=== PATIENT | male | born 1960 | race Caucasian/White ===

== ENCOUNTER → 2022-08-27 11:31 | Outpatient (BNVA) | payer OTHER, SELFPAY | PROVIDERS: PCP Nurse Practitioner Family; Visit Provider Nurse Practitioner Family | DX: T63.461A Toxic effect of venom of wasps, accidental (unintentional), initial encounter (principal); E78.5 Hyperlipidemia, unspecified; I10 Essential (primary) hypertension | CPT/HCPCS: 80053; 80061 ==

== ENCOUNTER 2023-05-21 07:15 | Day surgery (SDC) | payer OTHER, SELFPAY ==
[2023-05-21 07:28] VITALS: BP 165/91; PULSE 56; RESP 18; TEMP 36.6; O2SAT 94
[2023-05-21] MEDS: sodium chloride 0.9% 1,000 ML 30 ML IV (07:44)
--- NOTE | 2023-05-21 08:09 | ANES.PREANE2 ---
Pre-Anesthetic Assessment Height/Weight: Height 1.96 m Weight 133.81 kg Temp Pulse Resp BP Pulse Ox O2 Del Method 97.9 F 56 L 18 165/91 94 Room Air 05/21/23 07:28 05/21/23 07:28 05/21/23 07:28 05/21/23 07:28 05/21/23 07:28 05/21/23 07:28 Preop Diagnosis: screening, GERD Operation Date: 05/21/23 08:30 Proposed Procedures p 28457 egd 16459 colon G0105 screen colon H risk Z12.11,K21.9(Not Applicable) - Win Alfonso DO s Colonoscopy(Not Applicable) - Win Alfonso DO Familial anesthetic complications: None Was Beta Valdo taken within 24 hours: Yes Was Clonidine taken within 24 hours: N/A Last intake: Intake Last Liquid Date 05/20/23 Last Liquid Time 23:45 Last Solid Date 05/19/23 Last Solid Time 18:30 Social No alcohol and No tobacco Exam alert, oriented x 3 and regular rate & rhythm Airway Mallampati: Class I Dentition: full History/ROS No significant history except as noted Pulmonary Sleep Apnea CV/HEM Hypertension None reported Hepatic None reported GI Gastroesophageal Reflux Disease Metabolic None reported Musc/skel Lower Back Pain Neuropsych None reported Anesthetic Plan ASA status: 3 Anesthesia: Anesthesia Evaluation and MAC Risk of > 500 ml blood loss (7ml/kg in children): No Medications/Allergies Home Medications Medication Instructions Recorded Confirmed Last Taken Type amlodipine 5 mg tablet 5 mg PO DAILY #90 tabs 08/27/22 05/19/23 05/19/23 Rx baclofen 10 mg tablet 10 mg PO TID PRN spasms #270 tabs 08/27/22 05/19/23 05/19/23 Rx doxycycline hyclate 100 mg capsule 100 mg PO DAILY #90 caps 08/27/22 05/19/23 05/19/23 Rx epinephrine 0.3 mg/0.3 mL 0.3 mg (0.3 mL) IM Q4H PRN 08/27/22 05/19/23 Unknown Rx injection, auto-injector (EpiPen anaphylaxis #2 ea 2-Sudhakar) gabapentin 300 mg capsule 300 mg PO TID #270 caps 08/27/22 05/19/23 05/19/23 Rx hydrochlorothiazide 25 mg tablet 25 mg PO DAILY #90 tabs 08/27/22 05/19/23 05/19/23 Rx metoprolol tartrate 50 mg tablet 50 mg PO BID #180 tabs 08/27/22 05/19/23 05/21/23 Rx sildenafil 100 mg tablet (Viagra) 100 mg PO DAILY PRN sexual 01/28/23 05/19/23 05/19/23 Rx activity #30 tabs losartan 100 mg tablet 100 mg PO DAILY 04/22/23 05/19/23 05/19/23 History pantoprazole 40 mg tablet,delayed 40 mg PO BID 6 weeks #84 tabs 04/28/23 05/19/23 05/19/23 Rx release (Protonix) atorvastatin 40 mg tablet 40 mg PO DAILY #90 tabs 05/06/23 05/19/23 05/19/23 Rx meloxicam 15 mg tablet 15 mg PO DAILY PRN Pain 05/19/23 05/19/23 05/19/23 History Allergies Allergy/AdvReac Type Severity Reaction Status Date / Time venom-wasp Allergy Severe ALGY-Difficulty Verified 05/21/23 07:18 Breathing Current Medications Generic Name Dose Route Start Last Admin Trade Name Freq PRN Reason Stop Dose Admin Sodium Chloride 1,000 mls @ 30 mls/hr 05/21/23 07:30 05/21/23 07:44 Sodium Chloride 0.9% IV 05/22/23 07:29 30 mls/hr .Q24H KARY Administration PFSH Anesthesia Surgical History H/O eye surgery Family History Grandfather , prostate Cancer Father Hyperlipidemia Hypertension Grandfather Lung disease Other Congestive heart failure (CHF) Ischemic bowel disease Denies family history of Diabetes CAD (coronary artery disease) Clotting disorder Dementia Psychiatric illness Chronic kidney disease (CKD) Suicide Anesthesia complication Bleeding disorder Stroke Social History Smoking and tobacco/nicotine status: never used tobacco/nicotine Alcohol intake: current Alcohol intake frequency: holidays/special occasions only Substance/Drug Use: never Adopted: No Caregiver/support person: No Lives independently: Yes Household members: spouse Marital status: Number of children: 7 service: No Current occupational status: retired Current occupation: construction Pets and animals: Yes Sexually active: Yes Do you think of yourself as: Straight/Heterosexual Current gender identity: Male Data Anesthesia Cardiac Studies: No Data to Display
--- NOTE | 2023-05-21 08:52 | W.PM.OPSUD ---
Surgery/Procedure H&P Update DATE OF PROCEDURE: May 21, 2023 DATE H&P PERFORMED: 04/28/23 H&P UPDATE INFORMATION: I have reviewed H&P completed within last 30 days, I have examined patient prior to procedure and No changes to prior documentation PREOP DIAGNOSIS: screening, GERD PLANNED PROCEDURE: Operation Date: 05/21/23 08:30 Proposed Procedures p 75329 egd [id number] colon G0105 screen colon H risk Z12.11,K21.9(Not Applicable) - DO mary jane Yoo Colonoscopy(Not Applicable) - Win Alfonso DO
[2023-05-21 09:11] VITALS: BP 144/84; PULSE 62; RESP 18; TEMP 36.6; O2SAT 95
[2023-05-21 09:33] VITALS: BP 113/76; PULSE 52; RESP 18; O2SAT 95
--- NOTE | 2023-05-21 15:24 | ANE.PACU2 ---
Inpatient post-anesthesia follow up: Airway intact: Yes Vital signs: Temperature 98 F Pulse Rate 52 Respiratory Rate 18 Blood Pressure 113/76 Pulse Oximetry 95 Oxygen Delivery Me thod Room Air Oxygen Flow Rate Fraction of Inspir ed Oxygen Hydration adequate: Yes Nausea and vomiting: No Pain level: 2 Mental status: Baseline
== END 2023-05-21 09:45 | disposition home or self-care (01) ==
PROVIDERS: PCP Nurse Practitioner Family; Visit Provider Surgery
PROC: 0DJ08ZZ Inspection of Upper Intestinal Tract, Via Natural or Artificial Opening Endoscopic (ICD-10-PCS; CPT 43235; principal; 2023-05-21 08:30)
PROC: 0DJD8ZZ Inspection of Lower Intestinal Tract, Via Natural or Artificial Opening Endoscopic (ICD-10-PCS; CPT 45378; 2023-05-21 08:30)
DX: Z12.11 Encounter for screening for malignant neoplasm of colon (principal); K21.9 Gastro-esophageal reflux disease without esophagitis; K57.30 Diverticulosis of large intestine without perforation or abscess without bleeding; K29.50 Unspecified chronic gastritis without bleeding; G47.30 Sleep apnea, unspecified
CPT/HCPCS: 43239; 45378; 88305; 88342; J2704; J3490; J7030

== ENCOUNTER → 2024-06-29 14:30 | Outpatient (BNVA) | payer MEDICARE, SELFPAY | PROVIDERS: PCP Nurse Practitioner Family; Visit Provider Internal Medicine | DX: R07.9 Chest pain, unspecified (principal) | CPT/HCPCS: 93005; 99204 ==

== ENCOUNTER 2024-07-20 07:14 | Outpatient (CLI) | payer MEDICARE, SELFPAY ==
[2024-07-20 07:48] VITALS: BMI 34.9
--- NOTE | 2024-07-20 07:52 | NMCV_ITS ---
NM rayna perf SPECT r/s* 10021 Axel Guillen Age: 63 Gender: M : 1960 Exam Date: 07/20/2024 08:18 Ordering Phys: Keaton Valdes M.D ([email or web address]) Technologist: CARLI Almonte Exam Location: [facility] Indications: cp STRESS TEST [facility] IMAGE PROTOCOL Rest/Stress 1 Lexiscan Day Radiopharmaceutical Dose (mCi) Administration Site Administered by Rest: Tc-99m 10.8 IV CARLI Almonte Sestamibi Stress:Tc-99m 32.9 IV CARLI Theodore Sestamibi Rest: 20-Jul-2024 60 Discovery 630 Stress: 20-Jul-2024 30 Discovery 630 0.4mg Lexiscan. 0.4mg Lexiscan. Supine position only as patient was unable to lay prone. SPECT RESULTS Technical Quality: Good Raw Data Analysis: Normal Image Corrections: No attenuation or motion correction applied Summed Stress Score: 1 Summed Rest Score: 0 Summed Difference Score: 1 PERFUSION FINDINGS SPECT images demonstrate homogeneous tracer distribution throughout the myocardium. FUNCTIONAL RESULTS (calculated via Gated SPECT) Stress Image LV EF (%): 65 Stress EDV (mL):190 TID: 0.99 Stress ESV (mL):66 FUNCTIONAL FINDINGS: There is normal left ventricular systolic function. IMPRESSIONS Myocardial perfusion imaging is normal. Mike Mendez MD (Electronically Signed) Final Date: 27 Jul 2024 12:27 S
--- NOTE | 2024-07-20 07:52 | ECG_ITS ---
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 The perfusion scan will be documented separately. DATA: Baseline heart rate was 56 beats per minute. Baseline blood pressure was 161/83 millimeters of mercury. Target heart rate was 155. Maximum heart rate achieved was 69. which was 44% of the predicted target heart rate. Maximum blood pressure was 162/98 millimeters of mercury. The reason for ending the test was completion of the protocol. The patient did not experience any symptoms. ELECTROCARDIOGRAM: BASELINE: Sinus rhythm. Normal axis. Otherwise, no ST-T changes suggestive of ischemia noted. No arrhythmia noted. EXERCISE: After Lexiscan injection, no ST-T changes suggestive of ischemic noted. No arrhythmia noted. CONCLUSION: Please note due to baseline abnormality of the EKG specificity and sensitivity of the EKG portion of LexiScan MIBI stress test will be low 1. EKG not suggestive of ischemia 2. Lexiscan injection unremarkable. 3. Perfusion scan will be documented separately. Electronically Signed On 07-27-2024 19:09:31 CDT by PASCUAL PAHN [email or web address]
[2024-07-20] MEDS: regadenoson 0.4 Mg/5 ml Syringe IVP (08:43)
[2024-07-20 09:00] VITALS: BP 155/79; PULSE 60
== END 2024-07-20 07:15 | disposition home or self-care (01) ==
LOC: CDL 07:15
PROVIDERS: PCP Nurse Practitioner Family; Visit Provider Internal Medicine
DX: R07.9 Chest pain, unspecified (principal); R06.02 Shortness of breath
CPT/HCPCS: 36415; 78452; 93017; 96374; A9500; J2785

== ENCOUNTER → 2024-07-27 12:20 | Outpatient (BNVA) | payer MEDICARE, SELFPAY | PROVIDERS: PCP Nurse Practitioner Family; Visit Provider Internal Medicine | DX: I49.3 Ventricular premature depolarization (principal); R42 Dizziness and giddiness; R60.9 Edema, unspecified | CPT/HCPCS: 36415; 80048; 83880; 99214 ==

== ENCOUNTER 2024-08-24 06:12 | Outpatient (CLI) | payer MEDICARE, SELFPAY ==
--- NOTE | 2024-08-24 06:30 | MR_ITS ---
WS: [id number] MRI LUMBAR SPINE NONCONTRAST HISTORY: Chronic low back pain and LEFT hip pain. COMPARISON: Lumbar spine 08/24/2024 TECHNIQUE: Sagittal and axial multisequence imaging is submitted. Straightening of the normal cervical lordosis. Mild increase in the lumbar lordosis. Disc base narrowing and desiccation throughout the lumbar spine but most significant at L5-S1. No fractures or marrow edema. Conus terminates normally at L1-2 disc level. L1-L2: Normal. L2-L3: Mild annular disc bulge with a central disc protrusion. Mild effacement of ventral CSF. Mild ligamentum flavum and facet arthritis. No stenosis. L3-L4: Diffuse annular disc bulging with a broad-based central disc protrusion. Very minimal ligamentum flavum hypertrophy but moderate facet arthritis encroaching upon the thecal sac. There is an additional LEFT paracentral and subarticular recess disc protrusion. There is disc contact on the traversing L4 nerve roots but much greater on the LEFT. No foraminal stenosis. Mild central and subarticular recess stenosis. L4-L5: Osteophytic ridging with annular disc bulging. Broad-based central disc protrusion with contact on the traversing L5 nerve roots. Ligamentum flavum and moderate facet arthritis. Very mild RIGHT foraminal stenosis. Mild central and subarticular recess stenosis. L5-S1: Mild annular disc bulging. Mild bilateral facet arthritis. No stenosis. Paravertebral soft tissues are negative. MR/MR lumbar spine wo con* [id number] IMPRESSION: 1. L3-4: Broad-based central disc protrusion and facet arthritis. Additional L EFT paracentral disc protrusion extends into the subarticular recess. There is significant contact on the traversing L4 nerve roots, much greater on the LEFT. Mild central and subarticular recess stenosis. 2. L4-5: Broad-based disc bulging with a central protrusion contacts the trave rsing L5 nerve roots. Mild central and subarticular recess and RIGHT foraminal stenosis. 3. No fracture.
--- NOTE | 2024-08-24 06:47 | XR_ITS ---
WS: [email or web address] XR cervical spine fl/ex [id number] REASON FOR EXAM: M51.369 - Other intervertebral disc degeneration, lumbar ... FINDINGS: Relatively normal cervical lordosis. No significant vertebral body compression deformity or focal vertebral body lesion. Moderate anterior and mild posterior osteophytosis C4-C7. Mild narrowing of the intervertebral disc space C5-C6 and moderate narrowing of the C6-C7 disc space. No significant neutral listhesis. No significant vertebral body movement with flexion and extension. Mild degenerative arthropathy in the facet joints C3-C7. XR/XR cervical spine fl/ex [id number] IMPRESSION: Mild to moderate degenerative spondylosis as above.
--- NOTE | 2024-08-24 06:47 | XR_ITS ---
WS: [email or web address] XR hip BI m 5V wo/w pel* [id number] REASON FOR EXAM: M25.551 - Pain in right hip FINDINGS: RIGHT HIP: No fracture or focal bone lesion. Moderate (posterior inferior) to significant (superior anterior) narrowing of the joint space with moderate subchondral sclerosis and osteophytosis of the acetabulum. Mild to moderate osteophytosis of the femoral head. Convex deformity of the femoral head neck junction with underlying cystic change. LEFT HIP: No fracture or focal bone lesion. Moderate (posterior inferior) to significant (superior anterior) narrowing of the joint space with moderate subchondral sclerosis and osteophytosis of the acetabulum. Mild to moderate osteophytosis of the femoral head. Convex deformity of the femoral head and neck junction with underlying cystic change. XR/XR hip BI m 5V wo/w pel* [id number] IMPRESSION: The left and right hip are essentially symmetric. There is moderate to signific ant osteoarthritis. The femoral head/neck deformity is conducive to femoral rick tabular impingement which can cause labral injury which progresses to osteoarth ritis.
--- NOTE | 2024-08-24 06:47 | XR_ITS ---
WS: [email or web address] XR lumbar spine 6V w f/e [id number] REASON FOR EXAM: M51.369 - Other intervertebral disc degeneration, lumbar ... FINDINGS: Relatively normal lumbar curvatures. Mild biconcave compression deformities of L1 and L2, chronic. No other significant vertebral body compression deformity or focal vertebral body lesion. Mild narrowing of the disc spaces at L1-L2, L4-L5, and L5-S1. Mild vertebral body osteophytosis L1-L5. Large bridging osteophyte at L1-L2. No spondylolysis. No significant spondylolisthesis and no significant vertebral body movement with flexion and extension. Mild to moderate degenerative arthropathy in the facet joints L4-S1. XR/XR lumbar spine 6V w f/e [id number] IMPRESSION: Multilevel degenerative spondylosis as above.
== END 2024-08-24 06:13 | disposition home or self-care (01) ==
PROVIDERS: PCP Nurse Practitioner Family; Visit Provider Nurse Practitioner Family
DX: M51.369 Other intervertebral disc degeneration, lumbar region without mention of lumbar back pain or lower extremity pain (principal); M50.322 Other cervical disc degeneration at C5-C6 level; M16.0 Bilateral primary osteoarthritis of hip; M25.752 Osteophyte, left hip; M25.751 Osteophyte, right hip; M25.78 Osteophyte, vertebrae; M50.323 Other cervical disc degeneration at C6-C7 level; M47.892 Other spondylosis, cervical region; M48.56XD Collapsed vertebra, not elsewhere classified, lumbar region, subsequent encounter for fracture with routine healing; M51.379 Other intervertebral disc degeneration, lumbosacral region without mention of lumbar back pain or lower extremity pain; M47.897 Other spondylosis, lumbosacral region; R93.7 Abnormal findings on diagnostic imaging of other parts of musculoskeletal system; M51.26 Other intervertebral disc displacement, lumbar region; G96.09 Other spinal cerebrospinal fluid leak; M24.28 Disorder of ligament, vertebrae; M47.896 Other spondylosis, lumbar region; M48.061 Spinal stenosis, lumbar region without neurogenic claudication
CPT/HCPCS: 72040; 72114; 72148; 73523

== ENCOUNTER → 2024-08-27 10:36 | Outpatient (BNVA) | payer MEDICARE, SELFPAY | PROVIDERS: PCP Nurse Practitioner Family; Visit Provider Nurse Practitioner Family | DX: I50.9 Heart failure, unspecified (principal); I49.3 Ventricular premature depolarization; I44.0 Atrioventricular block, first degree; N52.9 Male erectile dysfunction, unspecified; Z87.898 Personal history of other specified conditions | CPT/HCPCS: 80048; 83880 ==

== ENCOUNTER → 2024-09-21 14:38 | Outpatient (BNVA) | payer MEDICARE, SELFPAY | PROVIDERS: PCP Nurse Practitioner Family; Visit Provider Orthopaedic Surgery | DX: M54.16 Radiculopathy, lumbar region (principal); M43.02 Spondylolysis, cervical region; M54.42 Lumbago with sciatica, left side; G89.29 Other chronic pain; M25.551 Pain in right hip; M25.552 Pain in left hip | CPT/HCPCS: 72050; 72110; 99204 ==

== ENCOUNTER → 2024-09-28 10:16 | Outpatient (BNVA) | payer MEDICARE, SELFPAY | PROVIDERS: PCP Nurse Practitioner Family; Referring Provider Orthopaedic Surgery; Visit Provider Anesthesiology Pain Medicine | DX: M54.40 Lumbago with sciatica, unspecified side (principal); G89.29 Other chronic pain; M16.0 Bilateral primary osteoarthritis of hip; M51.369 Other intervertebral disc degeneration, lumbar region without mention of lumbar back pain or lower extremity pain | CPT/HCPCS: 99204 ==

== ENCOUNTER → 2024-09-29 09:55 | Outpatient (BNVA) | payer MEDICARE, SELFPAY | PROVIDERS: PCP Nurse Practitioner Family; Visit Provider Specialist | DX: M16.0 Bilateral primary osteoarthritis of hip (principal) | CPT/HCPCS: 73523; 99204 ==

== ENCOUNTER → 2024-10-12 14:47 | Outpatient (BNVA) | payer MEDICARE, SELFPAY | PROVIDERS: PCP Nurse Practitioner Family; Visit Provider Anesthesiology Pain Medicine | DX: M54.16 Radiculopathy, lumbar region (principal); M54.9 Dorsalgia, unspecified; M54.40 Lumbago with sciatica, unspecified side; G89.29 Other chronic pain | CPT/HCPCS: 64483; 64484; J1100; J3490; J9999 ==

== ENCOUNTER → 2024-11-01 09:48 | Outpatient (BNVA) | payer MEDICARE, SELFPAY | PROVIDERS: PCP Nurse Practitioner Family; Visit Provider Anesthesiology Pain Medicine | DX: M51.362 Other intervertebral disc degeneration, lumbar region with discogenic back pain and lower extremity pain (principal); G89.29 Other chronic pain; M16.0 Bilateral primary osteoarthritis of hip | CPT/HCPCS: 99214 ==

== ENCOUNTER → 2024-11-10 14:22 | Outpatient (BNVA) | payer MEDICARE, SELFPAY | PROVIDERS: PCP Nurse Practitioner Family; Visit Provider Anesthesiology Pain Medicine | DX: M16.12 Unilateral primary osteoarthritis, left hip (principal) | CPT/HCPCS: 20610; 77002; J1010; J3490 ==

== ENCOUNTER → 2024-11-29 08:09 | Outpatient (BNVA) | payer MEDICARE, SELFPAY | PROVIDERS: PCP Nurse Practitioner Family; Visit Provider Anesthesiology Pain Medicine | DX: M16.0 Bilateral primary osteoarthritis of hip (principal); M51.369 Other intervertebral disc degeneration, lumbar region without mention of lumbar back pain or lower extremity pain; G89.29 Other chronic pain | CPT/HCPCS: 99214 ==

== ENCOUNTER → 2024-12-02 08:55 | Outpatient (BNVA) | payer MEDICARE, SELFPAY | PROVIDERS: PCP Nurse Practitioner Family; Visit Provider Dermatology | DX: L71.8 Other rosacea (principal); D18.01 Hemangioma of skin and subcutaneous tissue; Z80.8 Family history of malignant neoplasm of other organs or systems; D48.5 Neoplasm of uncertain behavior of skin; L57.0 Actinic keratosis | CPT/HCPCS: 11102; 17000; 99204 ==

== ENCOUNTER → 2024-12-07 07:52 | Outpatient (BNVA) | payer MEDICARE, SELFPAY | PROVIDERS: PCP Nurse Practitioner Family; Visit Provider Orthopaedic Surgery | DX: M54.16 Radiculopathy, lumbar region (principal) | CPT/HCPCS: 99213 ==

== ENCOUNTER → 2025-01-05 14:59 | Outpatient (BNVA) | payer MEDICARE, SELFPAY | PROVIDERS: PCP Nurse Practitioner Family; Visit Provider Specialist | DX: M16.12 Unilateral primary osteoarthritis, left hip (principal) | CPT/HCPCS: 73502; 99214 ==

== ENCOUNTER → 2025-01-25 14:54 | Outpatient (BNVA) | payer MEDICARE, SELFPAY | PROVIDERS: PCP Nurse Practitioner Family; Visit Provider Orthopaedic Surgery | DX: M51.360 Other intervertebral disc degeneration, lumbar region with discogenic back pain only (principal); M54.16 Radiculopathy, lumbar region; G89.29 Other chronic pain | CPT/HCPCS: 36415; 72110; 80053; 81001; 85025; 99214 ==

== ENCOUNTER → 2025-01-31 08:48 | Outpatient (BNVA) | payer MEDICARE, SELFPAY | PROVIDERS: PCP Nurse Practitioner Family; Visit Provider Dermatology | DX: C44.311 Basal cell carcinoma of skin of nose (principal); L81.4 Other melanin hyperpigmentation; D22.39 Melanocytic nevi of other parts of face; Z86.006 Personal history of melanoma in-situ; Z08 Encounter for follow-up examination after completed treatment for malignant neoplasm; Z85.828 Personal history of other malignant neoplasm of skin; D48.5 Neoplasm of uncertain behavior of skin; L57.0 Actinic keratosis | CPT/HCPCS: 99214 ==

== ENCOUNTER → 2025-02-02 15:35 | Outpatient (BNVA) | payer MEDICARE, SELFPAY | PROVIDERS: PCP Nurse Practitioner Family; Visit Provider Internal Medicine | DX: I49.3 Ventricular premature depolarization (principal) | CPT/HCPCS: 99213 ==

== ENCOUNTER 2025-02-09 09:23 | Day surgery (SDC) | payer MEDICARE, SELFPAY ==
[2025-02-09] VITALS (12 sets, daily range): BP systolic 150–177; BP diastolic 75–94; PULSE 55–69; RESP 16–17; TEMP 36.5–36.8; O2SAT 94–98; BMI 36.6
--- NOTE | 2025-02-09 09:38 | W.PM.OPSUD ---
Surgery/Procedure H&P Update DATE OF PROCEDURE: February 09, 2025 DATE H&P PERFORMED: 01/25/25 H&P UPDATE INFORMATION: I have reviewed H&P completed within last 30 days, I have examined patient prior to procedure and No changes to prior documentation PREOP DIAGNOSIS: Lumbar stenosis neurogenic claudication PLANNED PROCEDURE: Operation Date: 02/09/25 11:10 Proposed Procedures p Lumbar Spine Decompression(Not Applicable) - El Martin DO
--- NOTE | 2025-02-09 10:56 | ANES.PREANE2 ---
Pre-Anesthetic Assessment Height/Weight: Height 6 ft 5 in Weight 309 lb Temp Pulse Resp BP Pulse Ox 97.9 F 55 L 17 176/94 97 02/09/25 09:51 02/09/25 09:51 02/09/25 09:51 02/09/25 09:51 02/09/25 09:51 Preop Diagnosis: Lumbar stenosis neurogenic claudication Operation Date: 02/09/25 11:10 Proposed Procedures p Lumbar Spine Decompression(Not Applicable) - El Martin DO Last intake: Intake Last Liquid Date 02/08/25 Last Liquid Time 20:00 Last Solid Date 02/08/25 Last Solid Time 12:00 Anesthetic Plan ASA status: 3 Anesthesia: General Other: No prior issues with anesthesia NPO since yesterday evening History of hypertension on amlodipine and metoprolol SRUTHI on CPAP Labs reviewed from 02/02/2025 and acceptable for procedure History of cardiac event monitor with average heart rate of 57 and sinus rhythm Patient follows with cardiology and saw them last week Plan for GETA Medications/Allergies Home Medications ?Medication ?Instructions ?Recorded ?Confirmed ?Last Taken ?Type furosemide 20 mg tablet (Lasix) 20 mg PO DAILY #90 tabs 08/09/24 02/08/25 02/08/25 Rx amlodipine 5 mg tablet 5 mg PO DAILY #90 tabs 08/30/24 02/08/25 02/08/25 Rx epinephrine 0.3 mg/0.3 mL 0.3 mg (0.3 mL) IM Q4H PRN 09/17/24 02/08/25 Unknown Rx injection, auto-injector (EpiPen anaphylaxis #2 ea 2-Sudhakar) CPAP #1 ea 09/21/24 02/03/25 Unknown Rx metoprolol tartrate 50 mg tablet 50 mg PO BID #180 tabs 11/26/24 02/09/25 02/09/25 Rx amiodarone 200 mg tablet 200 mg PO DAILY 02/08/25 02/09/25 02/09/25 History doxycycline monohydrate 50 mg 50 mg PO BID 02/08/25 02/08/25 02/08/25 History capsule gabapentin 300 mg capsule 300 mg PO TID 02/08/25 02/09/25 02/09/25 History Allergies Allergy/AdvReac Type Severity Reaction Status Date / Time venom-wasp Allergy Severe ALGY-Difficulty Verified 11/19/25 09:47 Breathing Current Medications Generic Name Dose Route Start Last Admin Trade Name Evan PRN Reason Stop Dose Admin Sodium Chloride 1,000 mls @ 30 mls/hr 02/09/25 09:45 02/09/25 10:12 Sodium Chloride 0.9% IV 02/10/25 09:44 30 mls/hr .Q24H KARY Administration PFSH Anesthesia Medical History Pigmented skin lesion of uncertain nature Skin lesions, generalized Lumbar radiculopathy Neuropathy Cervical spondylolysis Osteoarthritis of hips, bilateral Sleep apnea Chronic low back pain with sciatica Neck pain Low back pain Arthritis Bilateral hip pain DDD (degenerative disc disease), cervical DDD (degenerative disc disease), lumbar Hx of prolonged Q-T interval on ECG Rosacea Frequent PVCs 1st degree AV block Dizziness Surgical History Hx of colonoscopy with polypectomy 5 years ago 10 years ago History of colonoscopy History of esophagogastroduodenoscopy (EGD) H/O eye surgery Family History Grandfather , prostate Cancer Father Hyperlipidemia Hypertension Grandfather Lung disease Other Congestive heart failure (CHF) Ischemic bowel disease Denies family history of Diabetes CAD (coronary artery disease) Clotting disorder Dementia Psychiatric illness Chronic kidney disease (CKD) Suicide Anesthesia complication Bleeding disorder Stroke Social History Smoking and tobacco/nicotine status: never used tobacco/nicotine Alcohol intake: current Alcohol intake frequency: holidays/special occasions only Substance/Drug Use: never Adopted: No Caregiver/support person: No Lives independently: Yes Household members: spouse Marital status: Number of children: 7 service: No Current occupational status: retired Current occupation: construction Pets and animals: Yes Sexually active: Yes Do you think of yourself as: Straight/Heterosexual Current gender identity: Male Data Anesthesia Cardiac Studies: Sestamibi Stress Test (Cardiology) 07/20/24 Cardiac Event Monitor 07/27/24
[2025-02-09] MEDS: ceFAZolin 3,000 MG in sodium chloride 0.9% (plus) 100 ML 200 MG IV (11:03)
[2025-02-09] MEDS: lidocaine-epi 1% 20 mL INJ INJECTION (11:38)
--- NOTE | 2025-02-09 12:43 | PM.OP ---
Operative Report Date of procedure: February 09, 2025 Pre-op diagnosis: Lumbar stenosis neurogenic claudication Post-op diagnosis: same Procedure done: 1. L3/4 laminectomy partial facetectomy and discectomy 2. L4-5/laminectomy partial facetectomy Surgeon: El Martin DO Estimated blood loss (mL): 25 Procedure: 1. L3/4 laminectomy partial facetectomy and discectomy 2. L4-5/laminectomy partial facetectomy patient is brought to the operative suite. After undergoing anesthesia they are placed in the prone position. All areas of impingement are well padded. Patient is then prepped and draped in the normal sterile fashion. A skin incision is made over the L3/4 level. This is confirmed under c-arm guidance. A series of dilators are passed and the tubular retractor is docked on the L3 lamina. A bovie is used to clear the soft tissue off the lamina and the L 3/4 facet joint. A high speed curtis is then used to perform the laminectomy and take down the medial aspect of the L 3/4 facet joint. A kerrison rongeure was then used to take down the remaining lamina and smooth the edge of the laminectomy up to the point where the ligamentum flavum attaches. Attention was then brought to the medial aspect of the facet joint. The remaining medial aspect of the superior and inferior aspect of the facet joint were taken down with the kerrison from the pedicle of L3 to L 4. The facet joint had significant hypertrophy. Attention was then brought to the Ligamentum Flavum. The ligament was taken down from the lamina of L3 to L4 and out medially to the remaining facet joint. The ligament was thick. The dura was then exposed. The dura was in good repair. L4 nerve root was reflected medially. The space identified. He was posterior longitudinal ligament and annulus were opened up with a curved curette. Disc fragment was removed. Was a large disc fragment. The L 3 nerve was then traced with a curette out the L 3/4 foramen and found to be adequately decompressed. The L4 nerve was traced with a curette around the L4 pedicle. The lateral recess was opened with a kerrison helping to further decompress the L4 nerve. Wound is then irrigated copiously with saline and surgiflo is used to stop any bleeding. The tubular retractor is removed A skin incision is made over the L4/5 level. This is confirmed under c-arm guidance. A series of dilators are passed and the tubular retractor is docked on the L4 lamina. A bovie is used to clear the soft tissue off the lamina and the L 4/5 facet joint. A high speed curtis is then used to perform the laminectomy and take down the medial aspect of the L 4/5 facet joint. A kerrison rongeure was then used to take down the remaining lamina and smooth the edge of the laminectomy up to the point where the ligamentum flavum attaches. Attention was then brought to the medial aspect of the facet joint. The remaining medial aspect of the superior and inferior aspect of the facet joint were taken down with the kerrison from the pedicle of L4 to L 5. The facet joint had significant hypertrophy. Attention was then brought to the Ligamentum Flavum. The ligament was taken down from the lamina of L4 to L5 and out medially to the remaining facet joint. The ligament was thick. The dura was then exposed. The dura was in good repair. The L4 nerve was then traced with a curette out the L4/5 foramen and found to be adequately decompressed. The L5 nerve was traced with a curette around the L5 pedicle. The lateral recess was opened with a kerrison helping to further decompress the L5 nerve. Wound is then irrigated copiously with saline and surgiflo is used to stop any bleeding. The tubular retractor is removed and the wound is closed with vicryl and monocryl suture. Steri strips were applied. A sterile dressing is then placed. Patient was then placed in the supine position and transferred to the PACU in stable condition.
[2025-02-09] MEDS: HYDROcodone-acetaminophen 5-325 mg Tablet 2 TAB PO (13:46)
--- NOTE | 2025-02-09 14:25 | ANE.PACU2 ---
Inpatient post-anesthesia follow up: Airway intact: Yes Vital signs: Temperature 97.8 F Pulse Rate 58 Respiratory Rate 16 Blood Pressure 157/82 Pulse Oximetry 98 Oxygen Delivery Me thod Room Air Oxygen Flow Rate Fraction of Inspir ed Oxygen Hydration adequate: Yes Nausea and vomiting: No Pain level: 1 Mental status: Baseline
--- NOTE | 2025-02-09 14:51 | SUR.PHASEII ---
1325 Instructed per Yanet Ford RN(PACU) that back dressing was draining and to check the dressing prior to discharge,1400 Dr. Martin here and back dressing dry and intact.
--- NOTE | 2025-02-09 15:39 | XR_ITS ---
WS: [email or web address] XR lumbar spine 1V [id number] REASON FOR EXAM: OR PIC , DECOMPRESSION FINDINGS: Surgical device overlies the left L4-L5 and subsequently the L3-L4 disc space. XR/XR lumbar spine 1V [id number] IMPRESSION: Lumbar level localization and surgery as above.
== END 2025-02-09 14:25 | disposition home or self-care (01) ==
PROVIDERS: PCP Nurse Practitioner Family; Visit Provider Orthopaedic Surgery
PROC: (CPT 63005; principal; 2025-02-09 11:00)
DX: M48.062 Spinal stenosis, lumbar region with neurogenic claudication (principal); I10 Essential (primary) hypertension; G47.33 Obstructive sleep apnea (adult) (pediatric); Z99.89 Dependence on other enabling machines and devices; G62.9 Polyneuropathy, unspecified; I44.0 Atrioventricular block, first degree; Z82.49 Family history of ischemic heart disease and other diseases of the circulatory system; Z80.42 Family history of malignant neoplasm of prostate
CPT/HCPCS: 63047; 63048; 72020; 76000; A4649; J0131; J0330; J0690; J1100; J2250; J2405; J2704; J3010; J3490; J7030; J9999

== ENCOUNTER → 2025-02-22 14:33 | Outpatient (BNVA) | payer MEDICARE, SELFPAY | PROVIDERS: PCP Nurse Practitioner Family; Visit Provider Orthopaedic Surgery | DX: Z98.890 Other specified postprocedural states (principal) | CPT/HCPCS: 99024 ==